=== PATIENT | female | born 1980 | race Caucasian/White ===

== ENCOUNTER 2018-07-14 10:20 | Emergency (ER) | payer MEDICAID ==
[~2018-07-14] VITALS: Ht 167.6 cm; Wt 57.9 kg
[2018-07-14 10:53] VITALS: BP 134/85
[2018-07-14] MEDS ORDERED: LIDOCAINE-MPF 1%, 5ML ONE (11:19)
[2018-07-14] MEDS ORDERED: LIDOCAINE-MPF 1%, 5ML INFIL ONE (11:30)
[2018-07-14] MEDS ORDERED: DIPH,PERTUSS(ACELL),TET VAC/PF 0.5 ML IM-VACC ONE ×2 (12:22→12:30)
== END 2018-07-14 12:34 | disposition home or self-care (01) ==
LOC: ED 12:28
DX: S61.412A Laceration without foreign body of left hand, initial encounter (principal); F17.200 Nicotine dependence, unspecified, uncomplicated; X58.XXXA Exposure to other specified factors, initial encounter; Y93.89 Activity, other specified; Y92.009 Unspecified place in unspecified non-institutional (private) residence as the place of occurrence of the external cause; Y99.8 Other external cause status
CPT/HCPCS: 12001; 90471; 90715; 99283

== ENCOUNTER 2018-11-16 01:54 | Emergency (ER) | payer MEDICAID ==
[~2018-11-16] VITALS: Ht 167.6 cm; Wt 60.2 kg
[2018-11-16 01:56] VITALS: BP 107/73
--- NOTE | 2018-11-16 02:09 | NUR ---
first contact with pt. pt c/o left eye pain since yesterday night. possible due to contacts. pt's aox4. resps even and unlabored.
[2018-11-16] MEDS ORDERED: FLUORESCEIN OPHTHALMIC 1 MG STRIP ONE (02:16)
[2018-11-16] MEDS ORDERED: PROPARACAINE OPHTH 0.5%, 15ML ONE (02:16)
[2018-11-16] MEDS ORDERED: FLUORESCEIN OPHTHALMIC 1 MG STRIP EACHEYE ONE (02:30)
[2018-11-16] MEDS ORDERED: PROPARACAINE OPHTH 0.5%, 15ML EACHEYE ONE (02:30)
[2018-11-16] MEDS ORDERED: IBUPROFEN 600 MG TABLET ONE (02:44)
--- NOTE | 2018-11-16 02:47 | NUR ---
PT MEDICATED PER EMAR. PT TOLERATED WELL.
--- NOTE | 2018-11-16 02:50 | NUR ---
pt given dc instructions and script. pt educated regarding dc medication. pt amb to dc with steady gait. no acute distress at dc.
[2018-11-16] MEDS ORDERED: IBUPROFEN 600 MG TABLET PO ONE (03:00)
== END 2018-11-16 02:51 | disposition home or self-care (01) ==
LOC: ED 02:45
DX: H18.822 Corneal disorder due to contact lens, left eye (principal)
CPT/HCPCS: 99283

== ENCOUNTER 2019-09-30 00:58 | Emergency (ER) | payer MEDICAID ==
[~2019-09-30] VITALS: Ht 167.6 cm; Wt 62.6 kg
[2019-09-30] MEDS ORDERED: CLINDAMYCIN 300 MG CAPSULE PO ONE (02:00)
[2019-09-30] MEDS ORDERED: CLINDAMYCIN 300 MG CAPSULE ONE (02:14)
[2019-09-30 02:15] VITALS: BP 118/85
== END 2019-09-30 02:21 | disposition home or self-care (01) ==
LOC: ED 02:15
DX: L02.612 Cutaneous abscess of left foot (principal); R00.0 Tachycardia, unspecified; F17.210 Nicotine dependence, cigarettes, uncomplicated
CPT/HCPCS: 99283